=== PATIENT | female | born 1960 | race African-American/Black ===

== ENCOUNTER 2017-03-23 03:31 | Inpatient (IN) ==
[2017-03-23] MEDS ORDERED: methylPREDNISolone SOD SUC 125 MG/2 ML VIAL IV STA (03:49)
[2017-03-23] MEDS ORDERED: ALBUTEROL/IPRATROPIUM 3 ML NEB RESP TX STA (03:49)
[2017-03-23] MEDS ORDERED: ONDANSETRON 4 MG/2 ML VIAL IM STA (03:49)
[2017-03-23] MEDS ORDERED: AZITHROMYCIN INJ 500 MG in SODIUM CHLORIDE 0.9% 250 ML IV STA (03:49)
--- NOTE | 2017-03-23 03:53 | Emergency Department Note ---
Arrival - Arrival Chief Complaint: Shortness of Breath Stated Complaint: feeling bad ED Nursing Triage Note: Patient to triage stating she is having trouble breathing. She states it starte 1 hour [employer]ING [employer]ACH[employer] HEAD END. She states that she was sleeping and she woke up having trouble breathing. Mode of Arrival: Ambulatory Limitations: No Limitations Source: Patient Time Seen by Provider: 03/23/17 03:48 - History of Present Illness HPI Narrative: This 56-year-old black female presents with complaints of awakening from her sleep feeling short of breath and unable to get a good breath in. She does not complain of chest pain, wheezing, cough, diaphoresis, vomiting, chills, or fever. She does state that she has some low-grade nausea and has had increased sinus congestion recently. Currently she appears in no acute medical distress. Onset (ago): hour(s) (Patient presents 1 hour post onset of symptoms) Allergies/Adverse Reactions: Allergies Allergy/AdvReac Type Severity Reaction Status Date / Time No Known Allergies Allergy Verified 03/23/17 03:37 Home Medications: Home Medications Medication Instructions Recorded Confirmed Type Carvedilol [Carvedilol] 25 mg PO BID 10/04/15 03/23/17 History Furosemide Tab [Lasix Tab] 40 mg PO DAILY 10/04/15 03/23/17 History Insulin NPH Hum/Reg Insulin Hm 30 unit SUBCUT BID 10/04/15 02/15/16 History [NovoLIN 70/30] NIFEdipine [Nifedipine ER] 30 mg PO DAILY 10/04/15 03/23/17 History Pantoprazole Tab [Protonix Tab] 40 mg PO DAILY 10/04/15 03/23/17 History hydrALAZINE TAB [Apresoline Tab] 100 mg PO TID 10/04/15 03/23/17 History Irbesartan [Avapro] 300 mg PO DAILY 03/23/17 03/23/17 History Review of System - Review of System 12 point system: reviewed and no additional remarkable complaints except as stated - Review of System Constitutional: Present: as per HPI Respiratory: Present: as per HPI Cardiovascular: Present: as per HPI Gastrointestinal: Present: as per HPI Medical,Surgical,& Family Hx - Medical History Cardio: History of: Hypertension No history of: CHF Neurology: History of: Seizures HEENT: History of: Eye Problem (Glasses/Cataracts/ Vision worse Left Eye), Dental Problems (Full Set Dentures) Endocrine: History of: Diabetes Mellitus (IDDM) Respiratory: Comment Only: Respiratory Problems (Flu Vac Jul 2015; No Pneum Vac) Gastrointestinal: History of: GERD Other: No history of: Anesthesia Reactions, Cancer - Surgical History HEENT Surgeries: Surgical HX of: Eye Surgery (10/19/15 Cataract Lt; 02/12/16 Sched for Cataract Rt) Reproductive Surgeries: Surgical HX of;: Tubal Ligation - Family History Family History: Reports;: Family Cancer, Family Diabetes, Family Hypertension - Social History Smoking Status: Never smoker Frequency of Alcohol Use: None Type of Drug Use: None Exam Physical Examination: GENERAL: Obese black female in no acute distress. HEENT: Normocephalic. No trauma. Moist mucous membranes. EOMI. PERRLA. ENT nasal mucosa erythema and edema NECK: Supple. Cervical adenopathy. CARDIAC: Regular. No murmurs. Heart rate 70 CHEST: Clear to auscultation. No respiratory distress. O2 saturation 97% ABDOMEN: Soft. Nontender. Active bowel sounds. EXTREMITIES: No trauma. Normal ROM. No pedal edema. SKIN: No diaphoresis. No rash. NEURO: Alert. Neuro intact no focal deficits. Vital Signs: Vital Signs Temperature 97.8 F 03/23/17 03:57 Pulse Rate 72 03/23/17 03:57 Respiratory Rate 18 03/23/17 03:57 Blood Pressure 156/78 03/23/17 03:57 O2 Sat by Pulse Oximetry 97 03/23/17 03:34 Course - Reevaluation(s) Reevaluation #1: Discussed with patient the results of her studies which reveals increasing renal insufficiency as well as evidence of borderline failure. To this and she is advised hospitalization for renal staging. She states she is seen in renal doctor in the last year but does not recall who. - Consultations Consultation #1: Discussed with hospitalist service who will admit for further evaluation treatment. Results - Labs CBC & BMP: 03/23/17 03:46 03/23/17 03:46 Labs: I have reviewed the lab and noted the low hematocrit consistent with renal insufficiency as well as the elevated creatinine creatinine and BUN - Impressions EKG: Sinus rhythm at 70 with normal TN interval and QRS duration. Diffuse ST abnormalities inferolateral with ST segment depression and T-wave inversion. - Diagnostic Findings Procedure: Chest x-ray: image reviewed by me, report reviewed by me (Borderline cardiac silhouette but no hank edema or infiltrate.) Disposition Clinical Impression: Renal insufficiency Case discussed with: patient Disposition: Still a Patient Condition: Stable
[2017-03-23 04:03] LABS: Basophils # 0.1 10*3/uL (0.0-0.2); Basophils % 0.5 % (0.0-0.8); Eosinophils # 0.3 10*3/uL (0.0-0.87); Eosinophils % 3.3 % (0.00-10.9); Hematocrit 33.3 VOL% (35.7-47.0); Immature Granulocytes % 0.3 %; Immature Granulocytes Absolute 0.03 #; Lymphocytes # 2.6 10*3/uL (1.4-4.0); Lymphocytes % 27.2 % (21.3-54.2); Mean Corpuscular Hemoglobin 30 PG (27-34); Mean Platelet Volume 11.7 FL (9.6-12.0); Monocytes # 0.8 10*3/uL (0.11-0.8); Monocytes % 7.8 % (1.7-12.7); Neutrophils # 5.8 10*3/uL (1.4-7.4); Neutrophils % 60.9 % (38.7-73.9); Platelet Count 196 T/CUMM (130-400); Red Blood Count 3.62 MC/CUMM (3.8-5.5); Red Cell Distribution Width 13.3 % (9.3-17.3); White Blood Count 9.6 T/CUMM (4-12)
[2017-03-23] MEDS ORDERED: ONDANSETRON 4 MG/2 ML VIAL ONE (04:14)
[2017-03-23] MEDS ORDERED: AZITHROMYCIN 500 MG VIAL IV ONE (04:14)
[2017-03-23] MEDS ORDERED: methylPREDNISolone SOD SUC 125 MG/2 ML VIAL ONE (04:14)
[2017-03-23 04:15] LABS: D-Dimer 0.6 MG/L FEU; PT Patient Result 10.5 SECS; Partial Thromboplastin Time 27.2 SECS (0-40)
[2017-03-23] MEDS ORDERED: ONDANSETRON 4 MG/2 ML VIAL IV STA (04:25)
[2017-03-23 04:38] LABS: Alanine Aminotransferase 11 U/L (13-56); Albumin 3.1 G/DL (3.4-5.0); Alkaline Phosphatase 83 U/L (45-117); Aspartate Amino Transferase 13 U/L (0-37); Bilirubin,Total < 0.39 MG/DL (0.2-1.0); Blood Urea Nitrogen 50 MG/DL (7-18); Calcium 8.2 MG/DL (8.5-10.1); Glucose 221 MG/DL (74-106); Osmolality,Calculated 302.1 MOS/KG (273-304); Potassium 4.5 MMOL/L (3.5-5.1); Sodium 142 MMOL/L (136-145); Total Protein 6.5 G/DL (6.4-8.3); Troponin I Only < 0.015 NG/ML (0.00-0.045)
[2017-03-23] MEDS ORDERED: ACETAMINOPHEN 325 MG TABLET PO PRN (05:23)
[2017-03-23] MEDS ORDERED: ONDANSETRON 4 MG/2 ML VIAL IV PRN (05:23)
[2017-03-23] MEDS ORDERED: DEXTROSE 50% 25 GM/50 ML VIAL IV PRN (05:23)
[2017-03-23] MEDS ORDERED: GLUCAGON 1 MG VIAL IM PRN (05:23)
[2017-03-23] MEDS ORDERED: ALBUTEROL/IPRATROPIUM 3 ML NEB RESP TX PRN (05:37)
--- NOTE | 2017-03-23 05:43 | Hospitalist History & Physical ---
Assessment and Plan (1) Bronchitis Status: Acute Current Visit: Yes (2) Acute renal failure superimposed on chronic kidney disease Status: Acute Current Visit: Yes (3) History of congestive heart failure Status: Acute Current Visit: Yes (4) Diabetes Status: Acute Current Visit: Yes (5) Shortness of breath Status: Acute Assessment and plan: We will treat the patient for bronchitis with IV antibiotics and schedule breathing treatments. In addition we are going to workup her increased creatinine. Order a spot protein creatinine ratio, urinalysis, renal ultrasound , and nephrology consult. Current Visit: Yes History of Present Illness Chief complaint: Shortness of breath History of present illness: Ms. Escamilla is a 56 year old female with past medical history significant for hypertension, diabetes, chronic kidney disease and congestive heart failure came to the hospital tonight after waking up short of breath. Patient reports feeling really cold. She is seeing Dr. Bass in the past. She has a history of creatinine but is never been recorded this time. She does complain about nausea also. She came up to our hospital for further evaluation. Patient's creatinine is now 4 and previously was 2.5. I was consulted to admit her. Currently she feels much better. She received be breathing treatments and some antibiotics. Home Medications Medication Instructions Recorded Confirmed Type Carvedilol [Carvedilol] 25 mg PO BID 10/04/15 03/23/17 History Furosemide Tab [Lasix Tab] 40 mg PO DAILY 10/04/15 03/23/17 History Insulin NPH Hum/Reg Insulin Hm 30 unit SUBCUT BID 10/04/15 02/15/16 History [NovoLIN 70/30] NIFEdipine [Nifedipine ER] 30 mg PO DAILY 10/04/15 03/23/17 History Pantoprazole Tab [Protonix Tab] 40 mg PO DAILY 10/04/15 03/23/17 History hydrALAZINE TAB [Apresoline Tab] 100 mg PO TID 10/04/15 03/23/17 History Irbesartan [Avapro] 300 mg PO DAILY 03/23/17 03/23/17 History Allergies Allergy/AdvReac Type Severity Reaction Status Date / Time No Known Allergies Allergy Verified 03/23/17 03:37 Medical,Surgical,& Family Hx - Medical History Cardio: History of: Hypertension No history of: CHF Neurology: History of: Seizures HEENT: History of: Eye Problem (Glasses/Cataracts/ Vision worse Left Eye), Dental Problems (Full Set Dentures) Endocrine: History of: Diabetes Mellitus (IDDM) Respiratory: Comment Only: Respiratory Problems (Flu Vac Jul 2015; No Pneum Vac) Gastrointestinal: History of: GERD Other: No history of: Anesthesia Reactions, Cancer - Surgical History HEENT Surgeries: Surgical HX of: Eye Surgery (10/19/15 Cataract Lt; 02/12/16 Sched for Cataract Rt) Reproductive Surgeries: Surgical HX of;: Tubal Ligation - Family History Family History: Reports;: Family Cancer, Family Diabetes, Family Hypertension - Social History Smoking Status: Never smoker Frequency of Alcohol Use: None Type of Drug Use: None 12 point system: reviewed and no additional remarkable complaints except as stated Exam - Constitutional Vitals: Period Temp Pulse Resp BP Sys/Siu Pulse Ox Last 24 Hr 97.8 F-97.8 F 70-72 18-18 156-177/78-86 97 General appearance: over weight - Head Head exam: Present: normal inspection - Eye Eye exam: Present: EOMI Pupils: Present: REILLY - ENT ENT exam: Present: normal exam - Neck Neck exam: Present: normal inspection - Respiratory Respiratory exam: Present: clear to auscultation bilaterally - Cardiovascular Cardiovascular exam: Present: regular rate and rhythm - GI/Abdominal GI/Abdominal exam: Present: normal bowel sounds - Extremities Exam Extremities exam: Present: normal inspection - Back Exam Back exam: Present: normal inspection - Neurological Exam Neurological exam: Present: alert - Psychiatric Psychiatric exam: Present: normal affect - Skin Skin exam: Present: normal color Results - Labs CBC & BMP: 03/23/17 03:46 03/23/17 03:46
[2017-03-23] MEDS: ALBUTEROL/IPRATROPIUM 3 ML NEB RESP TX SCH ×3 (07:10→19:25)
[2017-03-23] MEDS ORDERED: IRBESARTAN 150 MG TABLET PO ONE (07:32)
[2017-03-23] MEDS ORDERED: CARVEDILOL 25 MG TABLET PO ONE (07:33)
--- NOTE | 2017-03-23 07:39 | Ultrasound Report ---
US renal Bilateral Indication: Increased creatinine. Comparison: Renal ultrasound dated March 30, 2016. Technique: Multiple longitudinal and transverse real-time sonographic images of the kidneys are obtained. Findings: The right kidney measures 9.3 cm, and the left kidney measures 8.8 cm. There is no evidence of hydronephrosis. Hyperechoic renal parenchyma suggestive of medical renal disease. Cortical thinning suggested bilaterally to a mild degree. There is a cyst with septations demonstrated within the inferior pole of the right kidney. This measures up to 1.6 cm and appears similar in size considering change in technique. IMPRESSION: Medical renal disease/renal atrophy without evidence of hydronephrosis. Grossly stable mildly complex right renal cyst. Recommend continued follow-up. PROCEDURE INTERPRETED AT [facility] DEPARTMENT OF RADIOLOGY Final Report Signed by: Dr Puneet Glez
--- NOTE | 2017-03-23 07:55 | EKG Report ---
Stationary ECG Study [facility] ER Test Date: 03/23/2017 3:42:57 AM Pat Name: CLEMENTINA LIU Department: Room: Gender: F Regional Facilities Manager: Cari : 1960 Requested by: Barrington Alfredo Order Number: [id number] Reading MD: KAMRYN BLOCK Intervals [place] Rate: 70 P: -36 MS: 156 QRS: 41 QRSD: 81 T: -65 QT: 394 QTc: 415 Interpretive Statements SINUS RHYTHM At 70 bpm SEPTAL INFARCT, PROBABLY OLD Electronically Signed On 03-27-17 15:51:23 CDT by KAMRYN BLOCK [email or web address]
--- NOTE | 2017-03-23 08:01 | XRay Report ---
XR chest 1V portable Indication: SOB Comparison: Chest x-ray dated December 17, 2014 Technique: Single frontal view of the chest Findings: Mild cardiomegaly. Mild bilateral pulmonary interstitial prominence may reflect chronic change or interstitial pulmonary edema. Continued scarring of the left lung base suggested. Underlying infection would be difficult to exclude. Osseous and surrounding soft tissue structures appear grossly unchanged. IMPRESSION: As above. PROCEDURE INTERPRETED AT [facility] DEPARTMENT OF RADIOLOGY Final Report Signed by: Dr Puneet Glez
[2017-03-23] MEDS ORDERED: PANTOPRAZOLE 40 MG TABLET PO SCH (09:00)
[2017-03-23] MEDS: INSULIN REGULAR 100 UNIT/ML SUBCUT SCH ×4 (09:24→20:54)
[2017-03-23] MEDS: IRBESARTAN 150 MG TABLET PO SCH (09:25)
[2017-03-23] MEDS: CARVEDILOL 25 MG TABLET PO SCH ×2 (09:25→20:56)
[2017-03-23] MEDS: PANTOPRAZOLE 40 MG TABLET PO SCH (09:26)
[2017-03-23] MEDS: FUROSEMIDE 40 MG TABLET PO SCH (09:26)
[2017-03-23] MEDS: ENOXAPARIN 30 MG/0.3 ML SYRINGE SUBCUT SCH (09:27)
[2017-03-23 11:49] LABS: Apearance,Urine CLEAR (Clear); Bilirubin,Urine Negative (Negative); Blood, Urine Negative (Negative); Glucose,Urine (UA) >=500 mg/dL (Negative); Ketones,Urine Negative (Negative); Mucus,Urine Occasional /LPF (Occasional); Nitrite,Urine Negative (Negative); Protein,Urine 100 MG/DL; RBC,Urine 2 /HPF (0-4); Squamous Epithelial Cell,Urine Occasional /HPF (0-10); Urine Color Straw (Yellow); Urine Specific Gravity 1.005 (1.001-1.035); Urine Urobilinogen < 2.0 EU/DL (0.2-1.0); WBC,Urine 1 /HPF (0-6)
[2017-03-23 12:57] LABS: Barbiturates Screen,Urine Negative (Negative); Benzodiazepines Screen,Urine Negative (Negative); Cannabinoid Screen,Urine Negative (Negative); Opiate Screen,Urine Negative (Negative); Phencyclidine Screen,Urine Negative (Negative)
[2017-03-23 13:06] LABS: Protein/Creatinine Ratio,Urine 5.4 RATIO
--- NOTE | 2017-03-23 15:41 | Hospitalist Progress Note ---
Assessment and Plan - Time spent with patient Time spent with patient: Greater than 30 minutes (1) Diabetes Status: Acute Assessment and plan: Continue current management. Current Visit: Yes (2) Shortness of breath Status: Acute Assessment and plan: LE edema. History of CHF, no echo on file. Will obtain. Current Visit: Yes (3) Acute renal failure superimposed on chronic kidney disease Status: Acute Assessment and plan: Nephrology consulted. Current Visit: Yes Hospitalist: Subjective Interval history: No complaints or overnight events. Improving. Exam - Constitutional Vitals: Period Temp Pulse Resp BP Sys/Siu Pulse Ox Last 24 Hr 98.3 F-99 F 70-77 11-22 145-218/68-102 92-100 General appearance: no acute distress, over weight - Head Head exam: Present: normal inspection, normocephalic, atraumatic - Eye Eye exam: Present: EOMI Pupils: Present: REILLY - ENT ENT exam: Present: normal exam - Neck Neck exam: Present: normal inspection - Respiratory Respiratory exam: Present: clear to auscultation bilaterally. Absent: rhonchi, wheezes - Cardiovascular Cardiovascular exam: Present: regular rate and rhythm. Absent: gallop, rubs, systolic murmur - GI/Abdominal GI/Abdominal exam: Present: normal bowel sounds, soft. Absent: distended, firm , guarding, tenderness, rebound - Extremities Exam Extremities exam: Present: normal inspection, edema. Absent: calf tenderness Results - Labs CBC & BMP: 03/23/17 03:46 03/23/17 03:46 Lab Results: I have reviewed the past 24 hour labs Specialty Discharge - Follow Up or Referrals
--- NOTE | 2017-03-23 17:29 | Nephrology Consult Note ---
History of Present Illness Chief complaint: CRF History of present illness: Ms. Escamilla is a 56 year old female admitted with shortness of breath. She denies orthopnea or PND. She has had a nonproductive cough. She has chronic renal failure secondary to diabetes. Renal function was noted to be worse at the time of admission. She denies dysuria or hematuria. Home Medications Medication Instructions Recorded Confirmed Type Carvedilol [Carvedilol] 25 mg PO BID 10/04/15 03/23/17 History Furosemide Tab [Lasix Tab] 80 mg PO DAILY 10/04/15 03/23/17 History Insulin NPH Hum/Reg Insulin Hm 30 unit SUBCUT BID 10/04/15 03/23/17 History [NovoLIN 70/30] NIFEdipine [Nifedipine ER] 30 mg PO DAILY 10/04/15 03/23/17 History Pantoprazole Tab [Protonix Tab] 40 mg PO DAILY 10/04/15 03/23/17 History hydrALAZINE TAB [Apresoline Tab] 100 mg PO TID 10/04/15 03/23/17 History Irbesartan [Avapro] 300 mg PO DAILY 03/23/17 03/23/17 History Allergies Allergy/AdvReac Type Severity Reaction Status Date / Time No Known Allergies Allergy Verified 03/23/17 03:37 Medical,Surgical,& Family Hx - Medical History Cardio: History of: CHF, Hypertension Neurology: History of: Seizures HEENT: History of: Eye Problem (Glasses/Cataracts/ Vision worse Left Eye), Dental Problems (Full Set Dentures) Endocrine: History of: Diabetes Mellitus (IDDM) Respiratory: Comment Only: Respiratory Problems (Flu Vac Jul 2015; No Pneum Vac) Renal: History of: Renal Failure (pt sees Dr. Bass) Genitourinary: History of: Recurring Urinary Tract Infections Gastrointestinal: History of: GERD Other: No history of: Anesthesia Reactions, Cancer - Surgical History HEENT Surgeries: Surgical HX of: Eye Surgery (10/19/15 Cataract Lt; 02/12/16 Sched for Cataract Rt) Reproductive Surgeries: Surgical HX of;: Tubal Ligation - Family History Family History: Reports;: Family Cancer, Family Diabetes, Family Hypertension - Social History Smoking Status: Never smoker Frequency of Alcohol Use: None Type of Drug Use: None Review of Systems 12 point system: reviewed and no additional remarkable complaints except as stated Exam - Vital Signs Vital signs: Period Temp Pulse Resp BP Sys/Siu Pulse Ox Last 24 Hr 98.3 F-99.4 F 70-77 11-22 145-218/68-102 92-100 Exam: Gen.: Alert and oriented x3. ENT: Pupils equal round reactive to light. EOMs intact. Mucous membranes moist. Neck: Supple. No JVD or bruit. Cardiovascular: Regular rate and rhythm. No murmur rub or gallop Lungs: Clear Abdomen: Soft. Nontender. Positive bowel sounds. No organomegaly Extremities: 1+ edema Results - Labs CBC & BMP: 03/23/17 03:46 03/23/17 03:46 Assessment and Plan (1) Chronic kidney disease, stage IV (severe) Status: Acute Assessment and plan: 56-year-old woman admitted with: * CRF stage IV. Recent baseline creatinine 3.0 * Acute worsening of chronic renal failure. She is on no nephrotoxic medications. Blood pressure was elevated at the time of admission. UA is pending * Renal cyst * Diabetes mellitus * Shortness of breath. She does not appear to be in heart failure. This is likely bronchitis Current Visit: Yes (2) Acute renal failure superimposed on chronic kidney disease Status: Acute Current Visit: Yes (3) Bronchitis Status: Acute Current Visit: Yes (4) Diabetes Status: Acute Current Visit: Yes (5) Shortness of breath Status: Acute Current Visit: Yes Specialty Discharge - Follow Up or Referrals
[2017-03-24] MEDS: ALBUTEROL/IPRATROPIUM 3 ML NEB RESP TX SCH ×4 (01:58→20:16)
[2017-03-24] MEDS: AZITHROMYCIN INJ 500 MG in SODIUM CHLORIDE 0.9% 250 ML IV SCH (04:56)
[2017-03-24 06:22] LABS: Basophils % 0.2 % (0.0-0.8); Eosinophils % 0.2 % (0.00-10.9); Hematocrit 30.5 VOL% (35.7-47.0); Hemoglobin 9.9 GM/DL (12.0-16.0); Immature Granulocytes % 0.5 %; Immature Granulocytes Absolute 0.05 #; Lymphocytes # 1.7 10*3/uL (1.4-4.0); Lymphocytes % 15.8 % (21.3-54.2); Mean Corpuscular HGB Conc 32.5 GM/DL (32-36); Mean Corpuscular Hemoglobin 31 PG (27-34); Mean Platelet Volume 12.2 FL (9.6-12.0); Monocytes # 0.9 10*3/uL (0.11-0.8); Monocytes % 8.7 % (1.7-12.7); Neutrophils # 8.1 10*3/uL (1.4-7.4); Neutrophils % 74.6 % (38.7-73.9); Platelet Count 174 T/CUMM (130-400); Red Blood Count 3.21 MC/CUMM (3.8-5.5); Red Cell Distribution Width 13.2 % (9.3-17.3); White Blood Count 10.8 T/CUMM (4-12)
[2017-03-24 06:48] LABS: Calcium 8.4 MG/DL (8.5-10.1); Osmolality,Calculated 300.4 MOS/KG (273-304); Potassium 4.7 MMOL/L (3.5-5.1)
[2017-03-24] MEDS: INSULIN REGULAR 100 UNIT/ML SUBCUT SCH ×4 (08:18→21:18)
[2017-03-24] MEDS: ENOXAPARIN 30 MG/0.3 ML SYRINGE SUBCUT SCH (08:20)
[2017-03-24] MEDS: IRBESARTAN 150 MG TABLET PO SCH (08:22)
[2017-03-24] MEDS: CARVEDILOL 25 MG TABLET PO SCH ×2 (08:22→21:18)
[2017-03-24] MEDS: FUROSEMIDE 40 MG TABLET PO SCH (08:23)
[2017-03-24] MEDS: PANTOPRAZOLE 40 MG TABLET PO SCH (08:23)
--- NOTE | 2017-03-24 14:04 | Hospitalist Progress Note ---
Assessment and Plan - Time spent with patient Time spent with patient: Greater than 30 minutes (1) Acute renal failure superimposed on chronic kidney disease Status: Acute Assessment and plan: Improving. Nephrology consulted. Current Visit: Yes (2) Diabetes Status: Acute Assessment and plan: Continue current management. Current Visit: Yes (3) Shortness of breath Status: Acute Assessment and plan: LE edema. History of CHF, no echo on file. Will obtain. Current Visit: Yes Hospitalist: Subjective Interval history: No complaints. Exam - Constitutional Vitals: Period Temp Pulse Resp BP Sys/Siu Pulse Ox Last 24 Hr 97.0 F-99.4 F 69-81 17-20 153-194/74-88 93-99 General appearance: no acute distress - Head Head exam: Present: normocephalic, atraumatic - Eye Eye exam: Present: EOMI Pupils: Present: REILLY - ENT ENT exam: Present: normal exam - Neck Neck exam: Present: normal inspection - Respiratory Respiratory exam: Present: clear to auscultation bilaterally. Absent: rhonchi, wheezes - Cardiovascular Cardiovascular exam: Present: regular rate and rhythm. Absent: gallop, rubs, systolic murmur - GI/Abdominal GI/Abdominal exam: Present: normal bowel sounds, soft. Absent: distended, firm , guarding, tenderness, rebound - Extremities Exam Extremities exam: Present: normal inspection. Absent: calf tenderness, edema Results - Labs CBC & BMP: 03/24/17 05:11 03/24/17 05:11 Lab Results: I have reviewed the past 24 hour labs Specialty Discharge - Follow Up or Referrals
--- NOTE | 2017-03-24 14:05 | Nephrology Progress Note ---
Nephrology - PN: Subj Interval history: She feels better overall today. Denies shortness of breath. She has a nonproductive cough Exam (PN)-Nephrology - Vital Signs Vital signs: Period Temp Pulse Resp BP Sys/Siu Pulse Ox Last 24 Hr 97.0 F-99.4 F 69-81 17-20 153-194/74-88 93-99 Exam: ENT: Normal Cardiovascular: Regular rate and rhythm. No murmur rub or gallop Lungs: Clear Extremities: No edema - Lab 03/24/17 05:11 03/24/17 05:11 Most recent lab results Calcium 8.4 MG/DL (8.5-10.1) L 03/24/17 05:11 Assessment and Plan (1) Chronic kidney disease, stage IV (severe) Status: Acute Assessment and plan: 56-year-old woman admitted with: * CRF stage IV. Recent baseline creatinine 3.0 * Acute worsening of chronic renal failure. Renal function improved with normalization of blood pressure * Hypertension. Improved control * Renal cyst * Diabetes mellitus * Shortness of breath. She does not appear to be in heart failure. This is likely bronchitis Current Visit: Yes (2) Acute renal failure superimposed on chronic kidney disease Status: Acute Current Visit: Yes (3) Bronchitis Status: Acute Current Visit: Yes (4) Diabetes Status: Acute Current Visit: Yes (5) Shortness of breath Status: Acute Current Visit: Yes Specialty Discharge - Follow Up or Referrals
--- NOTE | 2017-03-24 18:31 | ECHO Report ---
Akhil Escamilla Exam Date: 03/24/2017 11:01 Referring Physician: Technologist: Mirna Sanabria Age: 56 Ht (in): 62 Wt (lb): 194 Gender: F Exam Location: [facility] Echo Indications: bronchitis, acute renal failure, sob, CHF, diabetes, edema BP: 189 / 81 HR: 75 Rhythm: Sinus Technical Quality: Fair IMPRESSIONS 1. Left ventricle is normal size systolic function ejection fraction 60+%. There is mild concentric left ventricular hypertrophy with mild to moderate diastolic dysfunction. 2. Right and left atrium are mildly dilated. 3. Mild mitral and tricuspid valve regurgitation 1. 4. Aortic valve is unremarkable. 5. No evidence of significantly elevated right-sided pressures. MEASUREMENTS (Male / Female) Normal Values 2D ECHO LV Diastolic Diameter PLAX 4.3 cm 4.2 - 5.9 / 3.9 - 5.3 cm LV Systolic Diameter PLAX 2.8 cm LV Fractional Shortening PLAX 36.2 % IVS Diastolic Thickness 1.4 cm 0.6 - 1.0 / 0.6 - 0.9 cm LVPW Diastolic Thickness 1.3 cm 0.6 - 1.0 / 0.6 - 0.9 cm RV Internal Dim ED PLAX 3.1 cm Aortic Root Diameter 2.6 cm LA Systolic Diameter LX 4.2 cm 3.0 - 4.0 / 2.7 - 3.8 cm DOPPLER TR Peak Velocity 272.0 cm/s TR Peak Gradient 29.6 mmHg FINDINGS Left Ventricle Left ventricle is normal size and systolic function without segmental wall motion normality's. Ejection fraction is 60+%. There is concentric left ventricular hypertrophy. Grade 2 diastolic dysfunction. Right Ventricle Right ventricle is normal size and systolic function. Right Atrium The right atrium is mildly enlarged. Left Atrium Mildly increased left atrial diameter. Mitral Valve Mitral valve is anatomically functionally normal with mild regurgitation. Aortic Valve Aortic valve is a tricuspid structure with sclerosis without stenosis or regurgitation. Tricuspid Valve Morphologically normal tricuspid valve. Mild tricuspid valve regurgitation. Tricuspid regurgitation velocities suggest a PAP of 35- 40 mmHg Pulmonic Valve Morphologically normal pulmonic valve. Pericardium No pericardial effusion. Aorta Normal size aortic root and proximal ascending aorta. Aldair Tobin MD (Electronically Signed) Final Date: 24 Mar 2017 18:27
[2017-03-25] MEDS: ALBUTEROL/IPRATROPIUM 3 ML NEB RESP TX SCH ×3 (00:09→13:07)
[2017-03-25] MEDS ORDERED: hydrALAZINE 20 MG/1 ML VIAL IV PRN (00:40)
[2017-03-25] MEDS: AZITHROMYCIN INJ 500 MG in SODIUM CHLORIDE 0.9% 250 ML IV SCH (04:07)
[2017-03-25] MEDS: INSULIN REGULAR 100 UNIT/ML SUBCUT SCH ×2 (08:24→12:09)
[2017-03-25] MEDS: ENOXAPARIN 30 MG/0.3 ML SYRINGE SUBCUT SCH (08:25)
[2017-03-25] MEDS: IRBESARTAN 150 MG TABLET PO SCH (08:25)
[2017-03-25] MEDS: CARVEDILOL 25 MG TABLET PO SCH (08:26)
[2017-03-25] MEDS: PANTOPRAZOLE 40 MG TABLET PO SCH (08:27)
[2017-03-25] MEDS: FUROSEMIDE 40 MG TABLET PO SCH (08:27)
[2017-03-25 10:10] LABS: Basophils % 0.4 % (0.0-0.8); Eosinophils # 0.3 10*3/uL (0.0-0.87); Eosinophils % 3.1 % (0.00-10.9); Hematocrit 30.8 VOL% (35.7-47.0); Hemoglobin 10.4 GM/DL (12.0-16.0); Immature Granulocytes % 0.4 %; Immature Granulocytes Absolute 0.04 #; Lymphocytes # 1.7 10*3/uL (1.4-4.0); Lymphocytes % 19.2 % (21.3-54.2); Mean Corpuscular HGB Conc 33.8 GM/DL (32-36); Mean Corpuscular Hemoglobin 31 PG (27-34); Mean Corpuscular Volume 92.2 FL (87-102); Mean Platelet Volume 12.1 FL (9.6-12.0); Monocytes # 0.5 10*3/uL (0.11-0.8); Neutrophils # 6.4 10*3/uL (1.4-7.4); Neutrophils % 70.9 % (38.7-73.9); Platelet Count 175 T/CUMM (130-400); Red Blood Count 3.34 MC/CUMM (3.8-5.5); Red Cell Distribution Width 13.2 % (9.3-17.3); White Blood Count 9.1 T/CUMM (4-12)
[2017-03-25 10:35] LABS: Calcium 8.1 MG/DL (8.5-10.1); Osmolality,Calculated 297.4 MOS/KG (273-304); Potassium 4.6 MMOL/L (3.5-5.1)
--- NOTE | 2017-03-25 13:29 | Discharge Summary ---
Hospital Course - Hospital Course Hospital Course: Ms. Escamilla was admitted for evaluation of shortness of breath. She is found to have acute bronchitis. She was initiated on breathing treatments and azithromycin with improvement in his symptoms. Furthermore she was noted to have acute kidney injury and nephrology was consulted. She placed on her medications and her kidney function was followed during hospital stay which returned to baseline. By discharge the patient met maximum benefit of hospitalization. I spent 32 minutes coordinating this discharge. - Time spent with patient Time with patient DS: Greater than 30 minutes Diagnosis - Discharge Diagnosis (1) Acute renal failure superimposed on chronic kidney disease Status: Acute (2) Diabetes Status: Acute (3) Shortness of breath Status: Acute Specialty Discharge - Follow Up or Referrals Discharge Plan - Discharge Data Disposition: Disch To Home/Self Care Condition at Discharge: Stable Discharge Diet: advance to your usual diet Activity: resume usual activities as tolerated - Discharge Medications New Azithromycin Tab [Zithromax Tab] 250 mg PO DAILY #3 tablet Continue Pantoprazole Tab [Protonix Tab] 40 mg PO DAILY NIFEdipine [Nifedipine ER] 30 mg PO DAILY Furosemide Tab [Lasix Tab] 80 mg PO DAILY hydrALAZINE TAB [Apresoline Tab] 100 mg PO TID Carvedilol 25 mg PO BID Insulin NPH Hum/Reg Insulin Hm [NovoLIN 70/30] 30 unit SUBCUT BID Irbesartan [Avapro] 300 mg PO DAILY - Follow Up or Referral - Forms/Instructions Forms: Work/School Release Exam - Constitutional Vitals: Period Temp Pulse Resp BP Sys/Siu Pulse Ox Last 24 Hr 97.7 F-98.8 F 61-79 18-20 152-209/65-91 93-99 General appearance: normal weight, no acute distress - Head Head exam: Present: normal inspection, normocephalic, atraumatic - Eye Eye exam: Present: EOMI Pupils: Present: REILLY - ENT ENT exam: Present: normal exam - Neck Neck exam: Present: normal inspection - Respiratory Respiratory exam: Present: clear to auscultation bilaterally. Absent: accessory muscle use, prolonged expiratory phase, wheezes - Cardiovascular Cardiovascular exam: Present: regular rate and rhythm. Absent: bradycardia, irregular rhythm, systolic murmur - GI/Abdominal GI/Abdominal exam: Present: normal bowel sounds. Absent: ascites, distended, hypoactive bowel sounds, tenderness - Extremities Exam Extremities exam: Present: normal inspection Discharge Results Procedures and tests throughout hospitalization: Pending Orders 03/26/17 04:00 BMP [Basic Metabolic Panel] IN AM Comp Blood Count Auto Diff IN AM Labs on day of discharge: Labs from last 24 hours 03/25/17 03/25/17 03/25/17 11:28 09:35 09:35 WBC 9.1 RBC 3.34 L Hgb 10.4 L Hct 30.8 L MCV 92.2 MCH 31 MCHC 33.8 RDW 13.2 Plt Count 175 MPV 12.1 H Neut % (Auto) 70.9 Lymph % (Auto) 19.2 L [place] % (Auto) 6.0 Eos % (Auto) 3.1 Baso % (Auto) 0.4 Neut # (Auto) 6.4 Lymph # (Auto) 1.7 [place] # (Auto) 0.5 Eos # (Auto) 0.3 Baso # (Auto) 0.0 Immature Gran % 0.4 Nucleated RBC % 0.0 Immature Gran # 0.04 Nucleated RBCs # 0.00 Sodium 140 Potassium 4.6 Chloride 108 H Carbon Dioxide 25 Anion Gap 11.6 BUN 46 H Creatinine 3.10 H GFR Calculation 20 BUN/Creatinine Ratio 14.00 Glucose 229 H POC Glucose 191 H Calculated Osmolality 297.4 Calcium 8.1 L 03/25/17 03/24/17 03/24/17 07:47 19:13 15:15 WBC RBC Hgb Hct MCV MCH MCHC RDW Plt Count MPV Neut % (Auto) Lymph % (Auto) [place] % (Auto) Eos % (Auto) Baso % (Auto) Neut # (Auto) Lymph # (Auto) [place] # (Auto) Eos # (Auto) Baso # (Auto) Immature Gran % Nucleated RBC % Immature Gran # Nucleated RBCs # Sodium Potassium Chloride Carbon Dioxide Anion Gap BUN Creatinine GFR Calculation BUN/Creatinine Ratio Glucose POC Glucose 222 H 204 H 176 H Calculated Osmolality Calcium Preliminary micro results at discharge 03/23/17 12:21 Blood Culture - Preliminary Blood No growth at 1 day 03/23/17 12:17 Blood Culture - Preliminary Blood No growth at 1 day DS: Provider Date of admission: 03/23/17 05:35 Primary care physician: . No PCP Attending physician on admission: Aldair Martinez MD Consults: 03/23/17 07:04 Consult to Physician [CONS] Routine Comment: Consulting Provider: Jadiel Bass 03/23/17 07:19 Consult to Pastoral Services [CONS] Routine Comment: Pastoral Screen: Request Cloth Folder Hand Visit Pastoral Screen Source of Request: Patient Discharging clinician: Samira Baum MD Expected date of discharge: 03/25/17
[2017-03-25 14:40] VITALS: BP 152/85
--- NOTE | 2017-03-29 08:41 | Physician Query Form ---
CLICK EDIT DOCUMENT TO SELECT QUERY ANSWER --> OK --> SIGN Renetta Jones RN Clinical Telephoto Engineer W) [phone] (f) [phone] [email or web address] PROVIDERS: Make your selection(s) from the choices in EACH section by typing an "x" and enter comments in the comment section. Please use your independent medical judgment in providing your response. This request does not imply that any particular answer is desired or expected. CLINICAL INDICATORS: (Providers should not edit this section) Based on documentation of "history of CHF", NVF=101, Echo showed EF of 60% with grade 2 diastolic dysfunction. Pt. treated with PO Lasix as home medication. Please provide further specificity regarding CHF. ACUITY: ( ) Acute ( x) Chronic ( ) Acute on Chronic ( ) Clinicallly unable to determine TYPE: ( ) Systolic (HFrEF - heart failure with reduced systolic function/EF) (x ) Diastolic (HFpEF - heart failure with preserved systolic function/EF) ( ) Combined Systolic/Diastolic ( ) Other, please specify: ( ) Clinically unable to determine ( ) The patient does NOT have CHF COMMENTS: PLEASE ALSO DOCUMENT RESPONSE IN PROGRESS NOTES AND/OR DISCHARGE SUMMARY Use of terms such as suspected, likely, or probable (associated with a specific diagnosis that is being evaluated, monitored, or treated as if it exists) are acceptable and can be restated in the discharge summary if not ruled out. MTDD
== END 2017-03-25 13:30 | disposition home or self-care (01) | DRG 683 ==
LOC: N.ED 03:31 → N.EDINP 03:31 → SUATTDRO 05:35 → OBSVTOIN 05:35 → N.2E 06:04
PROVIDERS: ADMIT Internal Medicine; ATTEND Internal Medicine

== ENCOUNTER 2022-10-23 16:02 | Inpatient (IN) ==
[2022-10-23 17:00] LABS: Basophils % 0.4 % (0.0-0.8); Eosinophils # 0.1 10*3/uL (0.0-0.87); Eosinophils % 1.4 % (0.00-10.9); Hematocrit 29.6 VOL% (35.7-47.0); Hemoglobin 9.8 GM/DL (12.0-16.0); Immature Granulocytes % 0.5 %; Immature Granulocytes Absolute 0.04 #; Lymphocytes % 12.4 % (21.3-54.2); Mean Corpuscular HGB Conc 33.1 GM/DL (32-36); Mean Corpuscular Volume 98.3 FL (87-102); Mean Platelet Volume 12.3 FL (9.6-12.0); Monocytes # 0.6 10*3/uL (0.11-0.8); NRBC # 0.02 10*3/uL; Neutrophils % 77.3 % (38.7-73.9); Platelet Count 115 T/CUMM (130-400); Red Blood Count 3.01 MC/CUMM (3.8-5.5); Red Cell Distribution Width 15.6 % (9.3-17.3)
[2022-10-23] MEDS ORDERED: NITROGLYCERIN 2% OINT 1 INCH/GM PACK TOP STA (17:23)
[2022-10-23] MEDS ORDERED: hydrALAZINE 20 MG/1 ML VIAL IV STA (17:27)
[2022-10-23 17:31] LABS: Albumin 3.5 G/DL (3.4-5.0); Bilirubin,Total 0.9 MG/DL (0.20-1.00); Calcium 9.2 MG/DL (8.5-10.1); Osmolality,Calculated 292.8 MOS/KG (273-304); Potassium 3.7 MMOL/L (3.5-5.1); Total Protein 6.6 G/DL (6.4-8.2)
[2022-10-23 17:41] LABS: Arterial Base Excess iSTAT 3 MMOL/L (-2.5-2.5); Arterial Bicarbonate iSTAT 26.8 MMOL/L (20-26); Arterial O2 Saturation iSTAT 97 % (95-100); Arterial PCO2 iSTAT 38 MM HG (35-48); Arterial PO2 iSTAT 87 MM HG (80-95); Arterial Total CO2 iSTAT 28 MMO/L (23-27); Arterial pH iSTAT 7.452 (7.35-7.45)
[2022-10-23] MEDS ORDERED: ONDANSETRON 4 MG/2 ML VIAL IV PRN (18:18)
[2022-10-23] MEDS ORDERED: ACETAMINOPHEN 325 MG TABLET PO PRN (18:18)
[2022-10-23] MEDS ORDERED: GLUCAGON 1 MG VIAL IM PRN (18:25)
[2022-10-23] MEDS ORDERED: guaiFENesin/DM ER 600-30 MG TABLET PO PRN (18:25)
[2022-10-23] MEDS ORDERED: ENOXAPARIN 30 MG/0.3 ML SYRINGE SUBCUT SCH (18:30)
[2022-10-23] MEDS ORDERED: FUROSEMIDE 40 MG/4 ML VIAL IV STA (18:33)
[2022-10-23] MEDS ORDERED: DEXTROSE 10% 250 ML BAG IV PRN (19:00)
[2022-10-23] MEDS ORDERED: IPRATROPIUM 500 MCG/2.5 ML NEB RESP TX ONE ×2 (19:01→22:10)
[2022-10-23] MEDS ORDERED: ALBUTEROL 2.5 MG/3 ML NEB RESP TX ONE (19:01)
[2022-10-23] MEDS: ALBUTEROL/IPRATROPIUM 3 ML NEB RESP TX SCH (19:02)
[2022-10-23] MEDS ORDERED: ALBUTEROL 2.5 MG/3 ML NEB RESP TX PRN (19:03)
[2022-10-23] MEDS ORDERED: hydrALAZINE 20 MG/1 ML VIAL IV PRN (19:50)
[2022-10-23] MEDS: cefTRIAXone 2,000 MG in SODIUM CHLORIDE 0.9% 100 ML IV SCH (19:54)
[2022-10-23] MEDS ORDERED: LEVALBUTEROL 1.25 MG/3 ML NEB RESP TX ONE (22:11)
[2022-10-23] MEDS: AZITHROMYCIN INJ 500 MG in SODIUM CHLORIDE 0.9% 250 ML IV SCH (23:09)
[2022-10-23] MEDS: SILDENAFIL 20 MG TABLET PO SCH (23:10)
[2022-10-23] MEDS: cloNIDine 0.1 MG TABLET PO SCH (23:10)
[2022-10-23] MEDS: APIXABAN 5 MG TABLET PO SCH (23:10)
[2022-10-23] MEDS: INSULIN LISPRO 100 UNIT/ML SUBCUT SCH (23:11)
[2022-10-23] MEDS: INSULIN NPH/REG 70/30 100 UNIT/ML SUBCUT SCH (23:11)
[2022-10-24] MEDS: ALBUTEROL/IPRATROPIUM 3 ML NEB RESP TX SCH ×4 (00:51→21:10)
[2022-10-24 06:09] LABS: Basophils % 0.3 % (0.0-0.8); Eosinophils # 0.2 10*3/uL (0.0-0.87); Eosinophils % 1.5 % (0.00-10.9); Hematocrit 29.4 VOL% (35.7-47.0); Hemoglobin 9.6 GM/DL (12.0-16.0); Immature Granulocytes % 0.6 %; Immature Granulocytes Absolute 0.06 #; Lymphocytes # 1.4 10*3/uL (1.4-4.0); Lymphocytes % 13.4 % (21.3-54.2); Mean Corpuscular HGB Conc 32.7 GM/DL (32-36); Mean Platelet Volume 12.5 FL (9.6-12.0); Monocytes # 0.9 10*3/uL (0.11-0.8); Monocytes % 8.4 % (1.7-12.7); NRBC # 0.03 10*3/uL; Neutrophils % 75.8 % (38.7-73.9); Platelet Count 140 T/CUMM (130-400); Red Blood Count 2.91 MC/CUMM (3.8-5.5); Red Cell Distribution Width 15.7 % (9.3-17.3); White Blood Count 10.1 T/CUMM (4-12)
[2022-10-24 06:17] LABS: Albumin 3.3 G/DL (3.4-5.0); Bilirubin,Total 0.5 MG/DL (0.20-1.00); Calcium 9.1 MG/DL (8.5-10.1); Osmolality,Calculated 281.7 MOS/KG (273-304); Potassium 3.1 MMOL/L (3.5-5.1); Total Protein 6.8 G/DL (6.4-8.2)
[2022-10-24] MEDS: INSULIN LISPRO 100 UNIT/ML SUBCUT SCH ×4 (07:38→21:18)
[2022-10-24] MEDS: SILDENAFIL 20 MG TABLET PO SCH ×4 (08:59→21:09)
[2022-10-24] MEDS: PANTOPRAZOLE 40 MG TABLET PO SCH (08:59)
[2022-10-24] MEDS: cloNIDine 0.1 MG TABLET PO SCH ×2 (08:59→21:09)
[2022-10-24] MEDS: NEBIVOLOL 10 MG TABLET PO SCH (08:59)
[2022-10-24] MEDS: APIXABAN 5 MG TABLET PO SCH ×2 (09:00→21:09)
[2022-10-24] MEDS: LOSARTAN 50 MG TABLET PO SCH (09:00)
[2022-10-24] MEDS ORDERED: predniSONE 10 MG TABLET PO SCH (09:00)
[2022-10-24] MEDS: SEVELAMER CARBONATE 800 MG TABLET PO SCH ×3 (09:00→17:03)
[2022-10-24] MEDS: INSULIN NPH/REG 70/30 100 UNIT/ML SUBCUT SCH ×2 (09:01→21:18)
[2022-10-24] MEDS ORDERED: POTASSIUM CHLORIDE 20 MEQ TABLET PO ONE (10:05)
[2022-10-24] MEDS: AZITHROMYCIN INJ 500 MG in SODIUM CHLORIDE 0.9% 250 ML IV SCH (21:09)
[2022-10-24] MEDS: AZELASTINE NASAL 137 MCG/SPRAY 30 ML BOTTLE BOTH NARES SCH (21:10)
[2022-10-24] MEDS: cefTRIAXone 2,000 MG in SODIUM CHLORIDE 0.9% 100 ML IV SCH (22:32)
[2022-10-25] MEDS: ALBUTEROL/IPRATROPIUM 3 ML NEB RESP TX SCH ×4 (00:06→19:05)
[2022-10-25 06:16] LABS: Basophils % 0.3 % (0.0-0.8); Eosinophils # 0.2 10*3/uL (0.0-0.87); Eosinophils % 2.2 % (0.00-10.9); Hematocrit 28.3 VOL% (35.7-47.0); Immature Granulocytes % 0.4 %; Immature Granulocytes Absolute 0.03 #; Lymphocytes # 0.9 10*3/uL (1.4-4.0); Lymphocytes % 13.3 % (21.3-54.2); Mean Corpuscular HGB Conc 31.8 GM/DL (32-36); Mean Corpuscular Volume 103.3 FL (87-102); Monocytes # 0.6 10*3/uL (0.11-0.8); Monocytes % 8.7 % (1.7-12.7); NRBC # 0.05 10*3/uL; Neutrophils % 75.1 % (38.7-73.9); Platelet Count 111 T/CUMM (130-400); Red Blood Count 2.74 MC/CUMM (3.8-5.5); White Blood Count 6.8 T/CUMM (4-12)
[2022-10-25 06:49] LABS: Calcium 8.2 MG/DL (8.5-10.1); Osmolality,Calculated 284.4 MOS/KG (273-304); Potassium 4.1 MMOL/L (3.5-5.1)
[2022-10-25] MEDS: SEVELAMER CARBONATE 800 MG TABLET PO SCH ×3 (08:29→17:20)
[2022-10-25] MEDS: LOSARTAN 50 MG TABLET PO SCH (08:30)
[2022-10-25] MEDS: NEBIVOLOL 10 MG TABLET PO SCH (08:30)
[2022-10-25] MEDS: cloNIDine 0.1 MG TABLET PO SCH ×2 (08:30→21:16)
[2022-10-25] MEDS: APIXABAN 5 MG TABLET PO SCH ×2 (08:31→21:16)
[2022-10-25] MEDS: PANTOPRAZOLE 40 MG TABLET PO SCH (08:31)
[2022-10-25] MEDS: SILDENAFIL 20 MG TABLET PO SCH ×3 (08:32→21:19)
[2022-10-25] MEDS: INSULIN LISPRO 100 UNIT/ML SUBCUT SCH ×4 (08:34→21:19)
[2022-10-25] MEDS: INSULIN NPH/REG 70/30 100 UNIT/ML SUBCUT SCH ×2 (08:35→21:20)
[2022-10-25] MEDS: AZITHROMYCIN INJ 500 MG in SODIUM CHLORIDE 0.9% 250 ML IV SCH (21:15)
[2022-10-25] MEDS: AZELASTINE NASAL 137 MCG/SPRAY 30 ML BOTTLE BOTH NARES SCH (21:16)
[2022-10-25] MEDS: cefTRIAXone 2,000 MG in SODIUM CHLORIDE 0.9% 100 ML IV SCH (21:17)
[2022-10-26] MEDS: ALBUTEROL/IPRATROPIUM 3 ML NEB RESP TX SCH ×4 (00:44→19:40)
[2022-10-26 08:13] LABS: Folate 7.08 NG/ML (5.38-24.0)
[2022-10-26 08:26] LABS: Hepatitis B Core IgM Quant 0.66 Index; Hepatitis B Surface Ag Quant < 0.10 Index; Hepatitis B Surface Ag Result Non-Reactive (NonReactive); Hepatitis C Virus Ab Quant 0.04 Index; Hepatitis C Virus Ab Result Non-Reactive (NonReactive)
[2022-10-26] MEDS: INSULIN LISPRO 100 UNIT/ML SUBCUT SCH ×4 (11:26→21:30)
[2022-10-26] MEDS: SILDENAFIL 20 MG TABLET PO SCH ×3 (11:27→21:30)
[2022-10-26] MEDS: SEVELAMER CARBONATE 800 MG TABLET PO SCH ×3 (11:27→17:41)
[2022-10-26] MEDS: cloNIDine 0.1 MG TABLET PO SCH ×2 (11:28→21:30)
[2022-10-26] MEDS: NEBIVOLOL 10 MG TABLET PO SCH (11:28)
[2022-10-26] MEDS: LOSARTAN 50 MG TABLET PO SCH (11:29)
[2022-10-26] MEDS: APIXABAN 5 MG TABLET PO SCH ×2 (11:29→21:30)
[2022-10-26] MEDS: PANTOPRAZOLE 40 MG TABLET PO SCH (11:30)
[2022-10-26] MEDS: INSULIN NPH/REG 70/30 100 UNIT/ML SUBCUT SCH ×2 (11:35→21:30)
[2022-10-26] MEDS: cefTRIAXone 2,000 MG in SODIUM CHLORIDE 0.9% 100 ML IV SCH (21:30)
[2022-10-26] MEDS: AZELASTINE NASAL 137 MCG/SPRAY 30 ML BOTTLE BOTH NARES SCH (21:30)
[2022-10-26] MEDS: AZITHROMYCIN INJ 500 MG in SODIUM CHLORIDE 0.9% 250 ML IV SCH (22:00)
[2022-10-27] MEDS: ALBUTEROL/IPRATROPIUM 3 ML NEB RESP TX SCH ×4 (01:07→19:18)
[2022-10-27 06:30] LABS: Basophils % 0.1 % (0.0-0.8); Eosinophils # 0.2 10*3/uL (0.0-0.87); Hematocrit 29.6 VOL% (35.7-47.0); Hemoglobin 9.2 GM/DL (12.0-16.0); Immature Granulocytes % 0.3 %; Immature Granulocytes Absolute 0.03 #; Lymphocytes % 11.5 % (21.3-54.2); Mean Corpuscular HGB Conc 31.1 GM/DL (32-36); Mean Corpuscular Volume 106.1 FL (87-102); Mean Platelet Volume 12.3 FL (9.6-12.0); Monocytes # 0.7 10*3/uL (0.11-0.8); Monocytes % 7.5 % (1.7-12.7); NRBC # 0.02 10*3/uL; Neutrophils % 78.6 % (38.7-73.9); Platelet Count 128 T/CUMM (130-400); Red Blood Count 2.79 MC/CUMM (3.8-5.5); Red Cell Distribution Width 16.5 % (9.3-17.3); White Blood Count 8.7 T/CUMM (4-12)
[2022-10-27 06:44] LABS: Albumin 2.7 G/DL (3.4-5.0); Bilirubin,Total 0.4 MG/DL (0.20-1.00); Calcium 8.5 MG/DL (8.5-10.1); Osmolality,Calculated 286.4 MOS/KG (273-304); Potassium 3.9 MMOL/L (3.5-5.1); Total Protein 5.9 G/DL (6.4-8.2)
[2022-10-27] MEDS: INSULIN NPH/REG 70/30 100 UNIT/ML SUBCUT SCH ×2 (10:09→23:02)
[2022-10-27] MEDS: SEVELAMER CARBONATE 800 MG TABLET PO SCH ×3 (10:10→17:54)
[2022-10-27] MEDS: PANTOPRAZOLE 40 MG TABLET PO SCH (10:10)
[2022-10-27] MEDS: INSULIN LISPRO 100 UNIT/ML SUBCUT SCH ×4 (10:10→23:02)
[2022-10-27] MEDS: cloNIDine 0.1 MG TABLET PO SCH ×2 (10:11→23:00)
[2022-10-27] MEDS: APIXABAN 5 MG TABLET PO SCH ×2 (10:13→23:08)
[2022-10-27] MEDS: LOSARTAN 50 MG TABLET PO SCH (10:13)
[2022-10-27] MEDS: SILDENAFIL 20 MG TABLET PO SCH ×3 (10:13→23:07)
[2022-10-27] MEDS: NEBIVOLOL 10 MG TABLET PO SCH (12:26)
[2022-10-27] MEDS: cefTRIAXone 2,000 MG in SODIUM CHLORIDE 0.9% 100 ML IV SCH (23:08)
[2022-10-27] MEDS: AZITHROMYCIN INJ 500 MG in SODIUM CHLORIDE 0.9% 250 ML IV SCH (23:09)
[2022-10-27] MEDS: AZELASTINE NASAL 137 MCG/SPRAY 30 ML BOTTLE BOTH NARES SCH (23:09)
[2022-10-28] MEDS: ALBUTEROL/IPRATROPIUM 3 ML NEB RESP TX SCH ×4 (01:33→19:17)
[2022-10-28] MEDS: INSULIN LISPRO 100 UNIT/ML SUBCUT SCH ×4 (07:38→22:58)
[2022-10-28] MEDS: SEVELAMER CARBONATE 800 MG TABLET PO SCH ×3 (08:20→17:06)
[2022-10-28] MEDS: LOSARTAN 50 MG TABLET PO SCH (12:07)
[2022-10-28] MEDS: PANTOPRAZOLE 40 MG TABLET PO SCH (12:07)
[2022-10-28] MEDS: SILDENAFIL 20 MG TABLET PO SCH ×3 (12:08→23:04)
[2022-10-28] MEDS: APIXABAN 5 MG TABLET PO SCH ×2 (12:08→22:59)
[2022-10-28] MEDS: cloNIDine 0.1 MG TABLET PO SCH ×2 (12:09→22:58)
[2022-10-28] MEDS: NEBIVOLOL 10 MG TABLET PO SCH (12:10)
[2022-10-28] MEDS: INSULIN NPH/REG 70/30 100 UNIT/ML SUBCUT SCH ×2 (12:40→22:58)
[2022-10-28] MEDS: AZITHROMYCIN INJ 500 MG in SODIUM CHLORIDE 0.9% 250 ML IV SCH (22:57)
[2022-10-28] MEDS: cefTRIAXone 2,000 MG in SODIUM CHLORIDE 0.9% 100 ML IV SCH (22:57)
[2022-10-28] MEDS: AZELASTINE NASAL 137 MCG/SPRAY 30 ML BOTTLE BOTH NARES SCH (22:59)
[2022-10-29] MEDS: ALBUTEROL/IPRATROPIUM 3 ML NEB RESP TX SCH ×4 (00:10→19:50)
[2022-10-29] MEDS: INSULIN LISPRO 100 UNIT/ML SUBCUT SCH ×4 (07:44→22:14)
[2022-10-29 08:01] LABS: Basophils % 0.3 % (0.0-0.8); Eosinophils # 0.2 10*3/uL (0.0-0.87); Eosinophils % 2.4 % (0.00-10.9); Hemoglobin 9.4 GM/DL (12.0-16.0); Immature Granulocytes % 0.4 %; Immature Granulocytes Absolute 0.03 #; Lymphocytes # 0.8 10*3/uL (1.4-4.0); Lymphocytes % 10.9 % (21.3-54.2); Mean Corpuscular HGB Conc 31.3 GM/DL (32-36); Mean Corpuscular Volume 107.1 FL (87-102); Monocytes # 0.6 10*3/uL (0.11-0.8); Platelet Count 126 T/CUMM (130-400); Red Cell Distribution Width 17.5 % (9.3-17.3); White Blood Count 7.4 T/CUMM (4-12)
[2022-10-29 08:17] LABS: Calcium 8.4 MG/DL (8.5-10.1); Osmolality,Calculated 274.1 MOS/KG (273-304); Potassium 4.8 MMOL/L (3.5-5.1)
[2022-10-29 08:32] LABS: Anisocytosis 2+; Burr Cells Few; Ovalocytes Few; Platelet Estimate Adequate; Poikilocytosis Slight; Tear Drop Cells Few
[2022-10-29 08:33] LABS: Macrocytosis 1+
[2022-10-29] MEDS: PANTOPRAZOLE 40 MG TABLET PO SCH (08:41)
[2022-10-29] MEDS: LOSARTAN 50 MG TABLET PO SCH (08:41)
[2022-10-29] MEDS: SEVELAMER CARBONATE 800 MG TABLET PO SCH ×3 (08:41→17:31)
[2022-10-29] MEDS: cloNIDine 0.1 MG TABLET PO SCH ×2 (08:41→22:13)
[2022-10-29] MEDS: NEBIVOLOL 10 MG TABLET PO SCH (08:41)
[2022-10-29] MEDS: SILDENAFIL 20 MG TABLET PO SCH ×3 (08:42→22:14)
[2022-10-29] MEDS: APIXABAN 5 MG TABLET PO SCH ×2 (08:42→22:13)
[2022-10-29] MEDS: INSULIN NPH/REG 70/30 100 UNIT/ML SUBCUT SCH ×2 (10:09→22:15)
[2022-10-29] MEDS: cefTRIAXone 2,000 MG in SODIUM CHLORIDE 0.9% 100 ML IV SCH (22:13)
[2022-10-29] MEDS: AZITHROMYCIN INJ 500 MG in SODIUM CHLORIDE 0.9% 250 ML IV SCH (22:13)
[2022-10-29] MEDS: AZELASTINE NASAL 137 MCG/SPRAY 30 ML BOTTLE BOTH NARES SCH (22:14)
[2022-10-30] MEDS: ALBUTEROL/IPRATROPIUM 3 ML NEB RESP TX SCH ×3 (01:00→13:07)
[2022-10-30] MEDS: INSULIN LISPRO 100 UNIT/ML SUBCUT SCH ×2 (08:50→12:08)
[2022-10-30] MEDS: PANTOPRAZOLE 40 MG TABLET PO SCH (09:24)
[2022-10-30] MEDS: cloNIDine 0.1 MG TABLET PO SCH (09:24)
[2022-10-30] MEDS: NEBIVOLOL 10 MG TABLET PO SCH (09:24)
[2022-10-30] MEDS: INSULIN NPH/REG 70/30 100 UNIT/ML SUBCUT SCH (09:24)
[2022-10-30] MEDS: LOSARTAN 50 MG TABLET PO SCH (09:24)
[2022-10-30] MEDS: SILDENAFIL 20 MG TABLET PO SCH (09:24)
[2022-10-30] MEDS: SEVELAMER CARBONATE 800 MG TABLET PO SCH ×2 (09:24→12:08)
[2022-10-30] MEDS: APIXABAN 5 MG TABLET PO SCH (09:25)
[2022-10-30 09:30] VITALS: BP 133/50
== END 2022-10-30 13:57 | DRG 193 ==
LOC: N.ED 16:02 → SUATTDRO 18:18 → N.EDINP 18:18 → N.TELEN 20:10
PROVIDERS: ADMIT Emergency Medicine; ATTEND Internal Medicine